=== PATIENT | male | born 1995 | race Caucasian/White ===

== ENCOUNTER 2025-07-31 11:07 | Outpatient (CLI) | payer OTHER, SELFPAY | END 2025-07-31 11:08 | disposition home or self-care (01) | LOC: NFLDREF 08-02 18:56 | PROVIDERS: PCP Family Medicine; Referring Provider Family Medicine; Visit Provider Family Medicine | DX: Z00.00 Encounter for general adult medical examination without abnormal findings (principal) | CPT/HCPCS: 80048; 80061 ==